=== PATIENT | female | born 1985 | race Asian ===

== ENCOUNTER 2019-11-10 02:40 | Inpatient (IN) | payer OTHER, SELFPAY ==
[2019-11-10] VITALS (115 sets, daily range): BP systolic 67–124; BP diastolic 33–93; PULSE 26–228; RESP 12–20; TEMP 35.9–36.8; O2SAT 77–100; BMI 27.3
--- NOTE | 2019-11-10 02:40 | LDADM ---
This patient, Jovanny Landis, was admitted to Labor/Delivery/Recovery 102 on 11/10/19 at 02:40. Plans for labor, pain management and were discussed with patient. Patient/family oriented to hospital policies and general routines including ID bracelet, bed and alarms, visiting hours, pain management, procedures, bathroom and other care routines, personal items, smoking policy, room service/diet and guest tray routines, infant security routines, and visiting hours. Patient/Family are encouraged to report perceived risks to care and to ask questions if they do not understand what they are told or what they should do. See OBIX for further documentation.
[2019-11-10 03:35] LABS: Basophils Absolute Auto 0.1 K/mm3 (0.0-0.1); Basophils Percent Auto 0.6 % (0.2-1.2); Eosinophils Absolute Auto 0.3 K/mm3 (0-0.3); Eosinophils Percent Auto 2.8 % (0-4.4); Hematocrit 39.6 % (37.0-47.0); Hemoglobin 13.2 g/dL (12.0-15.0); Immature Granulocyte Absolute 0.05 K/mm3 (0.00-0.031); Immature Granulocyte Percent A 0.4 % (0-0.5); Lymphocytes Absolute Auto 2.13 K/mm3 (0.9-3.2); Lymphocytes Percent Auto 18.8 % (18.3-44.2); Mean Corpuscular HGB Conc 33.3 g/dl (32-36); Mean Corpuscular Hemoglobin 30.6 pg (26-34); Mean Corpuscular Volume 91.7 fl (80-100); Mean Platelet Volume 9.6 fl (7.4-10.4); Monocytes Absolute Auto 0.7 K/mm3 (0.1-0.6); Monocytes Percent Auto 5.8 % (2.6-8.5); Neutrophils Absolute Auto 8.1 K/mm3 (1.3-6.7); Neutrophils Percent Auto 71.6 % (45.5-73.1); Platelet Count Result 273 k/mm3 (150-375); Red Blood Count 4.32 M/mm3 (4.2-5.4); Red Cell Distribution Width 12.7 % (11.5-14.5); White Blood Count 11.3 K/mm3 (4.5-10.0)
[2019-11-10] MEDS: LACTATED RINGERS 1,000 ML 125 ML IV CONT ×2 (03:35→05:25)
--- NOTE | 2019-11-10 04:15 | P.PNAN_ITS ---
Anes - Eval Pre Procedure Procedure: Labor epidural Date/Time: 11/10/19 04:15 Surgeon: Ruth Ann Barrios M.D. Preop Diagnosis: pain during labor Pre Op Diagnosis: contractions Patient Data Age: 33 Gender: F Height: 1.57 m Weight: 68 kg Last Vital Signs Temp 35.9 C L 11/10/19 03:00 Pulse 89 11/10/19 04:14 Resp 20 11/10/19 03:00 BP 96/48 L 11/10/19 04:14 Pulse Ox 97 11/10/19 04:12 Allergies Allergy/AdvReac Type Severity Reaction Status Date / Time No Known Allergies Allergy Unknown Verified 10/11/19 15:37 Home Medications Medication Instructions Recorded Confirmed Type PNV cmb#95-ferrous fumarate-FA 1 tablet PO DAILY 10/11/19 10/11/19 History [] calcium carbonate-vitamin D3 1 tablet PO BID 10/11/19 10/11/19 History [Calcium 500 With D] ergocalciferol (vitamin D2) 50,000 unit PO WEEKLY 10/11/19 10/11/19 History [Vitamin D2] levothyroxine 75 mcg PO DAILY 10/11/19 10/11/19 History Laboratory Tests 11/10/19 11/10/19 03:29 03:29 WBC 11.3 K/mm3 H K/mm3 (4.5-10.0) RBC 4.32 M/mm3 M/mm3 (4.2-5.4) Hgb 13.2 g/dL g/dL (12.0-15.0) Hct 39.6 % % (37.0-47.0) MCV 91.7 fl fl (80-100) MCH 30.6 pg pg (26-34) MCHC 33.3 g/dl g/dl (32-36) RDW 12.7 % % (11.5-14.5) Plt Count 273 k/mm3 k/mm3 (150-375) MPV 9.6 fl fl (7.4-10.4) Immature Gran % (Auto) 0.4 % % (0-0.5) Neut % (Auto) 71.6 % % (45.5-73.1) Lymph % (Auto) 18.8 % % (18.3-44.2) [place] % (Auto) 5.8 % % (2.6-8.5) Eos % (Auto) 2.8 % % (0-4.4) Baso % (Auto) 0.6 % % (0.2-1.2) Lymph # (Auto) 2.13 K/mm3 K/mm3 (0.9-3.2) [place] # (Auto) 0.7 K/mm3 H K/mm3 (0.1-0.6) Eos # (Auto) 0.3 K/mm3 K/mm3 (0-0.3) Baso # (Auto) 0.1 K/mm3 K/mm3 (0.0-0.1) Abs Immat Gran (auto) 0.05 K/mm3 H K/mm3 (0.00-0.031) Absolute Neuts (auto) 8.1 K/mm3 H K/mm3 (1.3-6.7) Absolute Nucleated RBC 0.0 K/mm3 K/mm3 (0.0-0.012) Nucleated RBC % 0.0 % % (0.0-0.2) RPR Pending Patient hx anesthesia problems: none Family hx anesthesia problems: none [facility] Family History Family History (Updated 10/11/19 @ 15:45 by Fang Henson RN) Father Cancer Mother Breast cancer History of blood clots Sibling Allergies Social History Social History Substance use: never Spiritual care concerns: No Exam Day of Procedure 11/10/19 04:15
--- NOTE | 2019-11-10 08:26 | WPDOBADMIT ---
Obstetrics - Admit Note Admission Note: record reviewed. No pertinent additions to the history and/or any subsequent changes in the physical findings that are not consistent with the expected course of the were found. Additions to the history and/or subsequent changes in the physical findings follow. None.Here in labor. Prior LTCS for face or OP presentation. Per patient description they felt the face and went for csection. Per op note was OP. Risks of reviewed several times in the office including risk of uterine rupture. Patient agreed and planned to trial labor. On arrival, patient was 4 cm and ctx regular and strong. Now C/BBOW/-1. AROM with clear fluid. Bradycardia post AROM and then variable to 50's with next contraction. Will push and if needed forceps.
[2019-11-10] MEDS: OXYTOCIN 30 UNITS/NS 500 ML 30 UNITS/500 ML BAG 999 UNITS IV CONT (09:15)
--- NOTE | 2019-11-10 09:24 | P.PCNOB_ITS ---
OB - Delivery Note Procedure Delivery date: 11/10/19 Procedure: events: Previous Induction method: none Delivery monitor: external FHT and external uterine Route of delivery: Laceration description: Perineal - 3rd Degree Delivery repair: vicryl (0 vicryl and 3-0 vicryl) Specimen: Yes (placenta) Estimated blood loss (mL): 200 Anesthesia type: Epidural Disposition: floor [place] Date of : 11/10/19 Weeks of gestation at delivery: 40 gender: Male Weight (pounds): 6 Weight (ounces): 15 presentation: vertex position: Right Occiput Anterior Placenta delivery description: Spontaneous cord vessel description: 3 Vessels score one minute: 8 score five minutes: 9
--- NOTE | 2019-11-10 09:26 | P.DS_ITS ---
DS: Diagnosis Discharge Diagnosis (1) 40 weeks gestation of : Code(s): Z3A.40 - 40 weeks gestation of Status: Acute (2) Previous delivery, antepartum: Code(s): O34.219 - Maternal care for unspecified type scar from previous delivery Status: Acute (3) , delivered: Code(s): O34.219 - Maternal care for unspecified type scar from previous delivery Status: Acute OB - DS: Summary OB Procedures : Ultrasound OB Procedures Intrapartum: OB Procedures: : None Peripartum Data Infant Delivery Method: Natural Vaginal Laceration description: Perineal - 3rd Degree complications: none Status at Discharge Functional status at discharge: independent ambulation Overall status at discharge: patient is progressing back to baseline Time Spent with Patient Time attestation: Total time spent providing and/or coordinating discharge services: DS: Data Data Completed and Pending Labs on day of discharge: Labs from last 24 hours 11/10/19 11/10/19 11/10/19 03:29 03:29 03:29 WBC 11.3 H RBC 4.32 Hgb 13.2 Hct 39.6 MCV 91.7 MCH 30.6 MCHC 33.3 RDW 12.7 Plt Count 273 MPV 9.6 Immature Gran % (Auto) 0.4 Neut % (Auto) 71.6 Lymph % (Auto) 18.8 [place] % (Auto) 5.8 Eos % (Auto) 2.8 Baso % (Auto) 0.6 Lymph # (Auto) 2.13 [place] # (Auto) 0.7 H Eos # (Auto) 0.3 Baso # (Auto) 0.1 Abs Immat Gran (auto) 0.05 H Absolute Neuts (auto) 8.1 H Absolute Nucleated RBC 0.0 Nucleated RBC % 0.0 RPR Pending Blood Type A Positive Antibody Screen Negative Discharge Plan Discharge Attending physician on discharge: Ruth Ann Barrios Discharging Clinician: Ruth Ann Barrios Anticipated Discharge Date/Time: 11/12/19 09:28 Patient Disposition: Home, Self-Care Activity: pelvic rest Diet: regular Patient Instructions: Antibiotic Form Stand Alone Forms: General Discharge Information Follow-up/Referrals: Ruth Ann Barrios MD [Physician] - 6 Weeks Discharge Medications: New docusate sodium [Colace] 100 mg capsule 100 mg PO BID Qty: 60 RF: 0 Continued levothyroxine 75 mcg Tablet 75 mcg PO DAILY RF: 0 ergocalciferol (vitamin D2) [Vitamin D2] 1,250 mcg (50,000 unit) Capsule 50,000 unit PO WEEKLY RF: 0 calcium carbonate-vitamin D3 [Calcium 500 With D] 500 mg(1,250mg) -400 unit Tablet 1 tablet PO BID RF: 0 PNV cmb#95-ferrous fumarate-FA [] 28 mg iron- 800 mcg Tablet 1 tablet PO DAILY RF: 0 Date of admission: 11/10/19 02:40 Primary Care Provider: UNKNOWN,DOCTOR Admitting Provider: Ruth Ann Barrios Attending physician on admission: Ruth Ann Barrios Condition: Stable
[2019-11-10] MEDS: DIBUCAINE 1% OINTMENT 30 GM TUBE 1 APPLIC TOPICAL (10:10)
[2019-11-10] MEDS: WITCH HAZEL 40 PADS 1 PAD TOPICAL (10:10)
[2019-11-10] MEDS: BENZOCAINE 20% AER SPR (*SP) 56 GM CAN 1 SPRAY TOPICAL (10:10)
[2019-11-10] MEDS: IBUPROFEN 600 MG TABLET PO ×2 (12:05→20:21)
--- NOTE | 2019-11-10 13:18 | PC.NURSE ---
1140-Patient transferred to post room #285 via wheelchair. Support person present. Oriented to unit, room, information board, rooming in, admission packet and security measures. Patient verbalizes understanding.
[2019-11-10] MEDS: ACETAMINOPHEN 325 MG TABLET 650 MG PO (22:54)
[2019-11-11] MEDS: IBUPROFEN 600 MG TABLET PO ×3 (02:01→15:48)
[2019-11-11] MEDS: ACETAMINOPHEN 325 MG TABLET 650 MG PO ×2 (04:33→18:56)
[2019-11-11 05:17] LABS: Hemoglobin 9.9 g/dL (12.0-15.0)
[2019-11-11] MEDS: LEVOTHYROXINE SODIUM 75 MCG TABLET PO (07:14)
[2019-11-11] MEDS: POLYSACCHARIDE IRON COMPLEX 150 MG CAPSULE PO ×2 (07:15→15:48)
[2019-11-11] MEDS: DOCUSATE SODIUM 100 MG CAPSULE PO (07:15)
[2019-11-11] MEDS: MULTIVIT/MIN/PREN/FOL AC/IRON TABLET 1 TAB PO (07:15)
[2019-11-11 07:40] LABS: Rapid Plasma Reagin Non-Reactive (NonReactive)
[2019-11-11 08:15] VITALS: BP 96/61; PULSE 80; RESP 18; TEMP 37.3; O2SAT 100
--- NOTE | 2019-11-11 11:15 | PC.NURSE ---
Mother called out for assist with feeding, reporting discomfort with latch and feeding. Mother has infant to breast in cradle with a shallow latch and infant head turned with chin to chest. Reviewed infant feeding cues, frequencies, duration of feedings, feeding elimination flow sheet, and signs of adequate intake. Demonstrated stimulation techniques to wake for feeding. Assisted with infant to breast. Reviewed positioning/alignment in cross cradle, holding breast in U hold and guided asymmetrical latch on. Discussed rational for each. was able to latch correctly. Infant nursed eagerly, with steady draws and frequent swallowing noted. Reviewed signs of a correct latch, effective nursing and suck swallow ratio. Mother reports much less discomfort with this feeding. Infant was able to maintain latch without discomfort to mother. Nipple care reviewed. Instructed mother to call out for RN assistance if she is unable to latch infant for feeding or she has discomfort with nursing. Instructed feeding should be initiated three hours from start of last feeding or if feeding cues are noted before. Mother voiced understanding of information shared.
--- NOTE | 2019-11-11 11:52 | PC.NURSE ---
catheter insertion time was unknown charted an approximate time.
--- NOTE | 2019-11-11 13:14 | P.PNOB_ITS ---
OB - PN: Subj Subjective Date/time seen: 11/11/19 13:14 Patient comments: pain well controlled, tolerating diet and other (Patient unable to void and RN drained 1800 cc per straight catheter yesterday. Patient still unable to void and I was called for orders. Ordered catheter place and to remain for 24 hours. Second catheteriztion 1400 cc obtained. ) [place] baby status: doing well OB - PN: Obj Data Labs CBC & Chem 7: 11/11/19 04:20 Labs: Laboratory Results - last 24 hr 11/10/19 11/11/19 03:29 04:20 Hgb 9.9 L D Hct 29.0 L RPR Non-reactive OB - PN A/P Assessment and Plan (1) , delivered: Code(s): O34.219 - Maternal care for unspecified type scar from previous delivery Status: Acute Assessment and Plan: ppd 1 (2) Acute urinary retention: Code(s): R33.8 - Other retention of urine Status: Acute Assessment and Plan: 1Due to overdistention, catheter ordered for 24 hours. Will attempt removal this pm. Bladder scans ordered q 2 hours once removed until able to void or 500 cc. Plan Plan: routine care Time Spent With Patient Time: Total time spent is greater than 50% in coordination of care (as documented) at patient's floor/unit and/or counseling patient: Exam : Bimanual exam- vagina & uterus: other (Uterus firm, nt @U)
--- NOTE | 2019-11-11 17:34 | WPDANLDPN2 ---
Anes-Prog Note L&D Date/Time: 11/11/19 17:34 Comfortable throughout: labor and delivery Neuraxial method: epidural Epidural/Spinal procedure site: clean & non-tender Neuro status: Neuro function grossly intact. Cardiovascular status: normal Respiratory status: normal Airway patency: baseline Mental status: baseline Post-Op hydration status: normal Vital Signs: Last Vital Signs Temp 37.3 C 11/11/19 08:15 Pulse 80 11/11/19 08:15 Resp 18 11/11/19 08:15 BP 96/61 L 11/11/19 08:15 Pulse Ox 100 11/11/19 08:15 I/O: Intake & Output 11/11/19 11/11/19 11/11/19 07:59 15:59 23:59 Intake Total 2900 Output Total 1200 1300 Balance 1700 -1300 Post-procedural complaints: none Patient feedback: Patient satisfied with anesthetic care.
--- NOTE | 2019-11-11 18:33 | PC.NURSE ---
Patient viewed the discharge video Mother & Baby Care, The First Two Weeks . Patient was given the opportunity and encouraged to ask questions. Patient verbalized understanding of information shared and has been given the mother/baby guide for home reference.
[2019-11-11 19:00] VITALS: BP 104/67; PULSE 89; RESP 16; TEMP 37.2; O2SAT 100
--- NOTE | 2019-11-12 01:29 | PC.NURSE ---
1900- Arnett catheter removed. Emptied 1200cc, pink tinged urine. Pt started voiding on her own shortly after discontinuing catheter. Patient is keeping track of output. Charted in I/O. 2100- Bladder scanner done. 216cc. 2300- Bladder scanner done. 176cc.
[2019-11-12] MEDS: IBUPROFEN 600 MG TABLET PO (07:04)
[2019-11-12] MEDS: LEVOTHYROXINE SODIUM 75 MCG TABLET PO (07:05)
[2019-11-12] MEDS: MULTIVIT/MIN/PREN/FOL AC/IRON TABLET 1 TAB PO (07:05)
[2019-11-12] MEDS: POLYSACCHARIDE IRON COMPLEX 150 MG CAPSULE PO (07:05)
[2019-11-12] MEDS: DOCUSATE SODIUM 100 MG CAPSULE PO (07:06)
[2019-11-12 07:40] VITALS: BP 94/58; PULSE 77; RESP 18; TEMP 36.5; O2SAT 99
--- NOTE | 2019-11-12 09:13 | PM.OBPNVD ---
OB - PN: Subj Subjective Date/time seen: 11/12/19 09:13 Patient comments: no complaints and other (voiding well) baby status: doing well OB - PN: Obj Data Labs CBC & Chem 7: 11/11/19 04:20 OB - PN A/P Plan day: 2 Plan: discharge home, follow up 6 weeks and other (voiding well; unsure bc plans) Time Spent With Patient Time: Total time spent is greater than 50% in coordination of care (as documented) at patient's floor/unit and/or counseling patient: Exam : Bimanual exam- vagina & uterus: other (Uterus firm, nt @U)
[2019-11-13 10:59] VITALS: BP 90/57; PULSE 90; RESP 16; TEMP 36.6; O2SAT 99
== END 2019-11-12 13:02 | disposition home or self-care (01) | DRG 768 ==
LOC: ANHLDR 09:30 → ANHOB2 11:47
PROVIDERS: Admitting Provider Obstetrics & Gynecology Gynecology; Visit Provider Obstetrics & Gynecology Gynecology
DX: O34.211 Maternal care for low transverse scar from previous cesarean delivery (principal); Z37.0 Single live birth; O70.20 Third degree perineal laceration during delivery, unspecified; Z3A.40 40 weeks gestation of pregnancy; R33.8 Other retention of urine; O99.284 Endocrine, nutritional and metabolic diseases complicating childbirth; E03.9 Hypothyroidism, unspecified
CPT/HCPCS: 36415; 85014; 85018; 85025; 86592; 86850; 86900; 86901; 88307; A9270; J2590; J3010; J7120

== ENCOUNTER 2021-12-08 01:08 | Day surgery (SDC) | payer OTHER, SELFPAY ==
[2021-11-30 10:51] VITALS: BMI 21.9
[2021-12-08 08:45] VITALS: BP 102/65; PULSE 85; RESP 16; TEMP 36.8; O2SAT 98; BMI 21.1
[2021-12-08] MEDS: LACTATED RINGERS 1,000 ML 150 ML IV CONT (09:05)
--- NOTE | 2021-12-08 09:13 | P.PNAN_ITS ---
Anes - Initial Pre Proc Eval Procedure: Operation Date: 12/08/21 10:00 Proposed Procedures p Screening Colonoscopy - Marky Zuleta MD Date/Time: 12/08/21 09:13 Surgeon: Marky Zuleta MD Pre Op Diagnosis: family hx of colon ca Patient Data Age: 35 Gender: F Height: 1.55 m Weight: 50.7 kg Last Vital Signs Temp 98.2 F 12/08/21 08:45 Pulse 85 12/08/21 08:45 Resp 16 12/08/21 08:45 BP 102/65 12/08/21 08:45 Pulse Ox 98 12/08/21 08:45 Allergies Allergy/AdvReac Type Severity Reaction Status Date / Time No Known Allergies Allergy Unknown Verified 12/08/21 08:53 Home Medications Medication Instructions Recorded Confirmed Type PNV cmb#95-ferrous fumarate-FA 1 tablet PO DAILY 10/11/19 12/08/21 History [] calcium carbonate-vitamin D3 1 tablet PO BID 10/11/19 12/08/21 History [Calcium 500 With D] ergocalciferol (vitamin D2) 50,000 unit PO WEEKLY 10/11/19 12/08/21 History [Vitamin D2] levothyroxine 75 mcg PO DAILY 10/11/19 12/08/21 History docusate sodium [Colace] 100 mg PO BID #60 cap 11/10/19 12/08/21 Rx Patient hx anesthesia problems: none Family hx anesthesia problems: none Results Review: All pre-operative results and documents have been reviewed as part of the pre-operative evaluation. [facility] Family History Family History Father Cancer Mother Breast cancer History of blood clots Sibling Allergies Social History Social History Smoking status: Never smoker Alcohol intake: never Substance use: never Substance use type: does not use Living arrangements: with family Spiritual care concerns: No Anes - Eval Final PreProcedure Day of Procedure 12/08/21 09:13 Patient weight: normal Heart: regular rate and rhythm Lungs: clear to auscultation Airway: Mallampati scale class II Neurological: alert and oriented Last oral intake: >/= 8 hours ASA classification: II Emergent: no Anesthetic plan: proceed Anesthesia type and monitoring: general and standard monitoring Results Review: All pre-operative results and documents have been reviewed as part of the pre-operative evaluation. Informed Consent: The patient's anesthetic plan and its attendant risks and benefits were discussed with the patient/family/POA. Questions were solicited and answers provided to the satisfaction of the patient/family/POA.
--- NOTE | 2021-12-08 09:23 | PM.HPGS ---
History of Present Illness History of Present Illness Consent: Risks, benefits, and alternatives have been discussed and questions answered. Patient agrees to proceed with procedure. Chief complaint: family hx of colon ca Narrative: Jovanny Landis is a 35 year old female here for first colonoscopy, father had colon cancer Review of Systems Constitutional: Constitutional: Denies headache(s) and Denies weakness Eyes: Eyes: Denies blurry vision ENT: Reports Normal hearing present, Denies headache(s) and Denies neck pain Cardiovascular: Cardiovascular: Denies chest pain and Denies dyspnea Respiratory: Respiratory: Denies dyspnea Gastrointestinal: Gastrointestinal: Reports no additional gastrointestinal complaints Genitourinary: Genitourinary: Denies dysuria Musculoskeletal: Musculoskeletal: Denies neck pain Integumentary/Breasts: Skin/Breast: Denies dry skin Neurologic: Reports Normal hearing present, Denies headache(s) and Denies weakness Psychiatric: Psychiatric: Denies anxiety Endocrine: Endocrine: Denies change in body appearance Hematologic/Lymphatic: Hematologic/Lymphatic: Denies easy bleeding Allergic/Immunologic: Allergic/Immunologic: Denies urticaria PMFSH Past Medical History Medical History (Updated 12/08/21 @ 09:23 by Marky Zuleta MD) Family history of colon cancer in father Family History Family History Father Cancer Mother Breast cancer History of blood clots Sibling Allergies Social History Social History Smoking status: Never smoker Alcohol intake: never Substance use: never Substance use type: does not use Living arrangements: with family Spiritual care concerns: No Meds Home Medications and Allergies Home Medications Medication Instructions Recorded Confirmed Type PNV cmb#95-ferrous fumarate-FA 1 tablet PO DAILY 10/11/19 12/08/21 History [] calcium carbonate-vitamin D3 1 tablet PO BID 10/11/19 12/08/21 History [Calcium 500 With D] ergocalciferol (vitamin D2) 50,000 unit PO WEEKLY 10/11/19 12/08/21 History [Vitamin D2] levothyroxine 75 mcg PO DAILY 10/11/19 12/08/21 History docusate sodium [Colace] 100 mg PO BID #60 cap 11/10/19 12/08/21 Rx Allergies Allergy/AdvReac Type Severity Reaction Status Date / Time No Known Allergies Allergy Unknown Verified 12/08/21 08:53 Vital Signs Vital Signs - 24 hr 12/08/21 08:45 Temperature 98.2 F Pulse Rate 85 Respiratory Rate 16 Blood Pressure 102/65 Pulse Oximetry 98 Exam Const: General: comfortable and no acute distress HENMT: General nose exam: Normal nares present Eyes: General: appearance normal, both eyes and all related structures Neck: Neck: no JVD Resp: Auscultation: clear to auscultation bilaterally Cardio: Rate: regular rate Rhythm: regular rhythm GI: Inspection: non-distended GI Palp: Yes Soft to palpation Skin: General skin exam: normal color Neuro: General: gait normal Speech: normal speech Extrem: General: normal to inspection Psych: Mental Status: mental status grossly normal Assessment and Plan Assessment and plan (1) Family history of colon cancer in father: Code(s): Z80.0 - Family history of malignant neoplasm of digestive organs Status: Acute Assessment and Plan: colonoscopy
[2021-12-08 09:43] VITALS: BP 93/63; PULSE 71; RESP 18; O2SAT 98
[2021-12-08 09:53] VITALS: BP 87/55; PULSE 65; RESP 22; O2SAT 100
[2021-12-08 10:03] VITALS: BP 92/55; PULSE 72; RESP 18; O2SAT 98
== END 2021-12-08 10:57 | disposition home or self-care (01) ==
PROVIDERS: PCP Emergency Medicine; Visit Provider Internal Medicine Gastroenterology
PROC: 0DJD8ZZ Inspection of Lower Intestinal Tract, Via Natural or Artificial Opening Endoscopic (ICD-10-PCS; CPT 45378; principal; 2021-12-08 10:00)
DX: Z12.11 Encounter for screening for malignant neoplasm of colon (principal); Z80.0 Family history of malignant neoplasm of digestive organs
CPT/HCPCS: 45378; J2001; J2704; J7120